=== PATIENT | female | born 1940 | race Caucasian/White ===

== ENCOUNTER → 2016-07-07 | Outpatient (CLI) | payer MEDICARE ==
--- NOTE | 2016-07-08 16:03 | NM ---
EXAMINATION TYPE: NM thyroid image w uptake DATE OF EXAM: 07/08/2016 11:11 AM COMPARISON: Ultrasound 01/02/2016 HISTORY: 75-year-old female with nontoxic multinodular goiter TECHNIQUE: After the intravenous administration of 10.86 mCi Tc 99m Sodium Pertechnetate, thyroid paradise ging is performed 10 minutes post injection. Thyroid iodine uptake is calculated after the oral admin istration of 18 uCi I-131 capsule. FINDINGS: There appears to be a focal area of increased activity within the medial mid left lobe. Otherwise, no rmal, possibly slightly depressed activity throughout the gland. The 4 hour iodine uptake is calculated at 7.9%, low (normal range 8-14%). The 24-hour iodine uptake is calculated at 26.1%, high normal (normal range 15-35%). IMPRESSION: 1. Warm versus hot nodule within the medial left midpole. This may correspond to the 1.1 cm left lobe nodule on the 01/02/2016 ultrasound. Follow-up thyroid uptake utilizing I-123 can be considered to as sess for the possibility of a warm/discordant nodule. A potentially discordant nodule could subsequen tly be biopsied. 2. However, if there are clinical signs/symptoms and laboratory findings suggesting that this could r epresent a toxic nodule, further medical or surgical management could be considered.
== END | disposition home or self-care (01) ==
LOC: RADNMMAIN 10:22
PROVIDERS: ATTEND Internal Medicine Endocrinology, Diabetes & Metabolism
DX: E04.2 Nontoxic multinodular goiter (principal)
CPT/HCPCS: 78014; A9528; A9512

== ENCOUNTER → 2016-07-15 | Outpatient (CLI) | payer MEDICARE ==
[2016-07-15 10:31] LABS: CH 30.3; CHCM 34.4; HCT 39.5 % (34.0-46.0); HDW 3.23; HGB 13.4 gm/dL (11.4-16.0); MCH 29.9 pg (25.0-35.0); MCHC 33.9 g/dL (31.0-37.0); MCV 88.3 fL (80.0-100.0); Mean Platelet Volume 7.5; RBC 4.48 m/uL (3.80-5.40); RDW 12.8 % (11.5-15.5); WBC 5.9 k/uL (3.8-10.6)
[2016-07-15 10:54] LABS: ALT 29 U/L (9-52); AST 22 U/L (14-36); Alkaline Phosphatase 90 U/L (38-126); Anion Gap 10 mmol/L; Blood Urea Nitrogen 13 mg/dL (7-17); Calcium 9.6 mg/dL (8.4-10.2); Carbon Dioxide 30 mmol/L (22-30); Chloride 102 mmol/L (98-107); Glucose 103 mg/dL (74-99); Non-African American GFR(MDRD) >60 (>60 ml/min/1.73 sqM); Potassium 3.7 mmol/L (3.5-5.1); Sodium 142 mmol/L (137-145); Total Bilirubin 0.9 mg/dL (0.2-1.3); Total Protein 7.3 g/dL (6.3-8.2)
== END | disposition home or self-care (01) ==
LOC: LABWHC1 10:01
PROVIDERS: ATTEND Internal Medicine Endocrinology, Diabetes & Metabolism
DX: E04.2 Nontoxic multinodular goiter (principal)
CPT/HCPCS: 36415; 80053; 85027

== ENCOUNTER → 2016-09-07 | Outpatient (CLI) | payer MEDICARE | END | disposition home or self-care (01) | LOC: LABWHC1 10:31 | PROVIDERS: ATTEND Internal Medicine Endocrinology, Diabetes & Metabolism | DX: E04.2 Nontoxic multinodular goiter (principal) | CPT/HCPCS: 36415; 84439; 84443 ==

== ENCOUNTER → 2016-12-14 | Outpatient (CLI) | payer MEDICARE | END | disposition home or self-care (01) | LOC: LABWHC1 10:23 | PROVIDERS: ATTEND Internal Medicine Endocrinology, Diabetes & Metabolism | DX: E05.90 Thyrotoxicosis, unspecified without thyrotoxic crisis or storm (principal) | CPT/HCPCS: 36415; 84439; 84443 ==

== ENCOUNTER → 2017-02-17 | Outpatient (CLI) | payer MEDICARE | LOC: LABWHC1 10:37 | PROVIDERS: ATTEND Internal Medicine Endocrinology, Diabetes & Metabolism | DX: E04.2 Nontoxic multinodular goiter (principal) | CPT/HCPCS: 36415; 84439; 84443 ==

== ENCOUNTER → 2017-09-17 | Outpatient (CLI) | payer MEDICARE ==
[2017-09-17 10:09] LABS: T4, Free (Free Thyroxine) 1.35 ng/dL (0.78-2.19)
== END | disposition home or self-care (01) ==
LOC: LABWHC1 08:59
PROVIDERS: ATTEND Internal Medicine Endocrinology, Diabetes & Metabolism
DX: E05.90 Thyrotoxicosis, unspecified without thyrotoxic crisis or storm (principal)
CPT/HCPCS: 36415; 84439; 84443; 84480

== ENCOUNTER → 2017-09-17 | Outpatient (CLI) | payer MEDICARE ==
--- NOTE | 2017-09-17 10:16 | US ---
EXAMINATION TYPE: US thyroid st tissue head/neck DATE OF EXAM: 09/17/2017 COMPARISON: US 01/02/2016. CLINICAL HISTORY: E04.2 Nontoxic Multinodular Goiter. F/U previous GLAND SIZE: Right Lobe: 4.0 x 2.0 x 1.9 cm Overall Parenchyma: heterogenous Left Lobe: 3.8 x 1.9 x 1.7 cm Overall Parenchyma: heterogeneous Isthmus Thickness: 0.6 cm NODULES RIGHT: # of nodules measured on right: 3 1. 1.1 X 1.0 x 1.0 cm isoechoic solid nodule at the upper pole with poorly defined margins; This n odule is wider than tall and shows intranodular vascularity. Prior size: Not visualized on previous 2. 0.7 X 0.8 x 0.8 cm isoechoic mixed nodule at the mid pole with poorly defined margins; This nodu le is wider than tall and shows intranodular vascularity. Prior size: Not visualized on previous 3. 0.6 X 0.5 x 0.5 cm echogenic calcified nodule at the mid pole. Prior size: 0.6 x 0.4 x 0.4 cm Multiple sub-centimeter cysts scattered throughout LEFT: # of nodules measured on left: 1 1. 0.9 X 0.7 x 1.0 cm hypoechoic solid nodule medial with well-defined margins; This nodule is wid er than tall and shows intranodular vascularity. Prior size: 1.1 x 0.7 x 0.9 cm Multiple sub-centimeter cysts scattered throughout ISTHMUS: # of nodules measured in the isthmus: 1 1. 1.4 X 0.9 x 1.5 cm hypoechoic solid nodule with well-defined margins; This nodule is wider rashawn n tall and shows intranodular vascularity. Prior size: 0.9 x 0.7 x 0.9 cm Bilateral neck scanned, no evidence of lymphadenopathy. Nodules bilaterally IMPRESSION: Multiple nonspecific subcentimeter and pericentimeter nodules need to biopsy should be made on a clin ical basis.
== END | disposition home or self-care (01) ==
LOC: RADUSWWP 09:19
PROVIDERS: ATTEND Internal Medicine Endocrinology, Diabetes & Metabolism
DX: E04.2 Nontoxic multinodular goiter (principal)
CPT/HCPCS: 76536

== ENCOUNTER → 2017-11-17 | Outpatient (CLI) | payer MEDICARE ==
--- NOTE | 2017-11-17 10:16 | XR ---
EXAMINATION TYPE: XR ankle complete LT DATE OF EXAM: 11/17/2017 COMPARISON: NONE HISTORY: Pain TECHNIQUE: 3 views of the left ankle are submitted for evaluation. FINDINGS: There is no evidence for fracture or dislocation. Ankle mortise is intact. Soft tissues are within normal limits. IMPRESSION: 1. No evidence for acute fracture.
--- NOTE | 2017-11-17 10:23 | XR ---
EXAMINATION TYPE: XR Hip Complete LT DATE OF EXAM: 11/17/2017 CLINICAL HISTORY: pain TECHNIQUE: AP and frogleg views of the left hip are obtained. COMPARISON: None. FINDINGS: There is no acute fracture/dislocation evident. The joint space appears moderately narro wed.. The overlying soft tissue appears unremarkable. IMPRESSION: 1. There is no acute fracture or dislocation. ICD 10 NO FRACTURE, INITIAL EVALUATION
--- NOTE | 2017-11-17 10:25 | XR ---
EXAMINATION TYPE: XR knee complete LT DATE OF EXAM: 11/17/2017 CLINICAL HISTORY: pain TECHNIQUE: Three views of the left knee are obtained. COMPARISON: None. FINDINGS: There is no acute fracture/dislocation. The tri-compartment joint spaces appear within no rmal limits. Intercondylar spur formation noted. The overlying soft tissue appears unremarkable. IMPRESSION: There is no acute fracture or dislocation ICD 10 NO FRACTURE, INITIAL EVALUATION
== END | disposition home or self-care (01) ==
LOC: RADXRMAIN 09:29
PROVIDERS: ATTEND Family Medicine
DX: M25.572 Pain in left ankle and joints of left foot (principal); M25.562 Pain in left knee; M25.552 Pain in left hip
CPT/HCPCS: 73502

== ENCOUNTER → 2017-12-13 | Outpatient (CLI) | payer MEDICARE ==
--- NOTE | 2017-12-14 09:42 | MM ---
Reason for exam: screening (asymptomatic). Last mammogram was performed 1 year and 7 months ago. History: Patient is postmenopausal. Family history of breast cancer in sister at age 45. Physical Findings: A clinical breast exam by your physician is recommended on an annual basis and results should be correlated with mammographic findings. MG 3D Screening Mammo W/Cad Bilateral CC and MLO view(s) were taken. Prior study comparison: May 26, 2016, bilateral MG 3d screening mammo w/cad. December 05, 2014, bilateral MG screening mammo w CAD. The breast tissue is heterogeneously dense. This may lower the sensitivity of mammography. Stable benign calcifications. There is no discrete abnormality. No significant changes when compared with prior studies. ASSESSMENT: Benign, BI-RAD 2 RECOMMENDATION: Routine screening mammogram of both breasts in 1 year.
== END | disposition home or self-care (01) ==
LOC: RADMAMWWP 07:10
PROVIDERS: ATTEND Family Medicine
DX: Z12.31 Encounter for screening mammogram for malignant neoplasm of breast (principal)
CPT/HCPCS: 77063; 77067

== ENCOUNTER → 2017-12-24 | Outpatient (CLI) | payer MEDICARE ==
[2017-12-24 11:28] LABS: T4, Free (Free Thyroxine) 1.13 ng/dL (0.78-2.19)
== END | disposition home or self-care (01) ==
LOC: LABWHC1 10:22
PROVIDERS: ATTEND Internal Medicine Endocrinology, Diabetes & Metabolism
DX: E05.90 Thyrotoxicosis, unspecified without thyrotoxic crisis or storm (principal)
CPT/HCPCS: 36415; 84439; 84443; 84480

== ENCOUNTER → 2018-02-09 | Outpatient (CLI) | payer MEDICARE ==
[2018-02-09 11:26] LABS: Bilirubin, Delta 0.3 mg/dL (0.0-0.2); Bilirubin,Unconjugated 0.6 mg/dL (0.0-1.1); Total Bilirubin 0.9 mg/dL (0.2-1.3)
== END | disposition home or self-care (01) ==
LOC: LABWHC1 10:11
PROVIDERS: ATTEND Family Medicine
DX: E78.00 Pure hypercholesterolemia, unspecified (principal); I10 Essential (primary) hypertension; Z79.899 Other long term (current) drug therapy
CPT/HCPCS: 36415; 80061; 80076

== ENCOUNTER → 2018-07-05 | Outpatient (CLI) | payer MEDICARE ==
[2018-07-05 16:52] LABS: T4, Free (Free Thyroxine) 1.3 ng/dL (0.80-1.80)
== END | disposition home or self-care (01) ==
LOC: LABWHC1 11:09
PROVIDERS: ATTEND Internal Medicine Endocrinology, Diabetes & Metabolism
DX: E05.90 Thyrotoxicosis, unspecified without thyrotoxic crisis or storm (principal)
CPT/HCPCS: 36415; 84439; 84443; 84480

== ENCOUNTER 2018-08-23 09:12 | Day surgery (SDC) | payer MEDICARE ==
[2018-08-19 08:55] VITALS: BMI 32.4
[~2018-08-23 09:12] MED LIST: LACTATED RINGERS 1,000 ML IV SCH; LIDOCAINE 1% 20 ML VIAL (10MG/ML) FOR IV START INTRADERMA PRN
[2018-08-23 09:31] VITALS: RESP 16; TEMP 97.3
[2018-08-23] MEDS ORDERED: PROPOFOL 10 MG/ML 20 ML VIAL IV ONE (10:46)
--- NOTE | 2018-08-23 10:52 | P.GSHP ---
History of Present Illness H&P Date: 08/23/18 Chief Complaint: Blood in stool This is a 77-year-old female who presents today for colonoscopy. Patient states that she notices blood in the pump of her when she wiped herself. She has a history of hemorrhoids. Past Medical History Past Medical History: Deep Vein Thrombosis (DVT), GERD/Reflux, GI Bleed, Hyperlipidemia, Hypertension, Thyroid Disorder Additional Past Medical History / Comment(s): hx hemorrhoids, arthritis, recent gum infection History of Any Multi-Drug Resistant Organisms: None Reported Past Surgical History: Cholecystectomy, Heart Catheterization, Hysterectomy Additional Past Surgical History / Comment(s): surgery for varicose veins left leg Past Anesthesia/Blood Transfusion Reactions: Previous Problems w/ Anesthesia Additional Past Anesthesia/Blood Transfusion Reaction / Comment(s): "hard time coming back with last anesthesia" Smoking Status: Never smoker - Past Family History Father Family Medical History: Cancer Sister(s) Family Medical History: Cancer Sister(s) Daughter(s) Additional Family Medical History / Comment(s): sister-cancer Medications and Allergies Home Medications Medication Instructions Recorded Confirmed Type Acetaminophen [Tylenol] 325 mg PO Q4H PRN 08/19/18 08/23/18 History Aspirin EC [Ecotrin] 325 mg PO DAILY 08/19/18 08/23/18 History Atenolol [Tenormin] 12.5 mg PO DAILY 08/19/18 08/23/18 History Atenolol [Tenormin] 25 mg PO DAILY 08/19/18 08/23/18 History Atorvastatin [Lipitor] 40 mg PO DAILY 08/19/18 08/23/18 History Benazepril HCl 20 mg PO DAILY 08/19/18 08/23/18 History Calcium Carbonate [Tums] 500 mg PO DAILY PRN 08/19/18 08/23/18 History Calcium Carbonate/Vitamin D3 1 each PO DAILY 08/19/18 08/23/18 History [Caltrate 600 Plus D3 Tablet] Cholecalciferol [Vitamin D3] 1,000 unit PO DAILY 08/19/18 08/23/18 History Hydrochlorothiazide [Hydrodiuril] 25 mg PO DAILY 08/19/18 08/23/18 History Methimazole [Tapazole] 5 mg PO DAILY 08/19/18 08/23/18 History amLODIPine BESYLATE [Norvasc] 10 mg PO DAILY 08/19/18 08/23/18 History Allergies Allergy/AdvReac Type Severity Reaction Status Date / Time adhesive tape Allergy Rash/Hives Verified 08/19/18 08:39 niacin Allergy Unknown Verified 08/19/18 08:39 [From Niaspan Extended-Release] Surgical - Exam Vital Signs Temp Pulse Resp BP Pulse Ox 97.3 F L 60 16 147/77 97 08/23/18 09:29 08/23/18 09:29 08/23/18 09:29 08/23/18 09:29 08/23/18 09:29 - General well developed, well nourished, no distress - Eyes PERRL - ENT normal pinna - Neck no masses - Respiratory normal expansion - Cardiovascular Rhythm: regular - Abdomen Abdomen: soft, non tender Assessment and Plan Assessment: Blood in stool History of hemorrhoids We'll perform colonoscopy
[2018-08-23 11:22] VITALS: PULSE 58
--- NOTE | 2018-08-23 11:24 | P.OP ---
Date of Procedure: 08/23/18 Preoperative Diagnosis: Blood in stool Postoperative Diagnosis: Internal hemorrhoids Procedure(s) Performed: Colonoscopy Anesthesia: MAC Surgeon: Garrett Moreira Pathology: none sent Condition: stable Disposition: PACU Description of Procedure: The patient's placed on the endoscopy table in the lateral position. She received IV sedation. Digital rectal exam was performed which revealed internal hemorrhoids. Flexible colonoscope was then placed patient anus and passed throughout the entire colon. The ileocecal valve was visualized. The cecum, ascending and transverse colon appeared normal. In the descending colon there a few scattered diverticula. Scope was then brought back scope was then brought back the rectum this appeared normal. The scope was withdrawn from patient and internal hemorrhoids are noted.
[2018-08-23 11:35] VITALS: BP 114/68
== END 2018-08-23 12:05 | disposition home or self-care (01) ==
LOC: ORWHC2ENDO 09:12
PROVIDERS: ATTEND Surgery
DX: K64.8 Other hemorrhoids (principal); K57.30 Diverticulosis of large intestine without perforation or abscess without bleeding; E78.5 Hyperlipidemia, unspecified; I10 Essential (primary) hypertension; K21.9 Gastro-esophageal reflux disease without esophagitis; Z79.82 Long term (current) use of aspirin; Z86.718 Personal history of other venous thrombosis and embolism; Z90.49 Acquired absence of other specified parts of digestive tract; Z88.8 Allergy status to other drugs, medicaments and biological substances; Z79.899 Other long term (current) drug therapy
CPT/HCPCS: 45378; J2704

== ENCOUNTER → 2018-09-26 | Outpatient (CLI) | payer MEDICARE ==
[2018-09-26 20:06] LABS: T4, Free (Free Thyroxine) 1.1 ng/dL (0.80-1.80)
== END | disposition home or self-care (01) ==
LOC: LABWHC1 11:29
PROVIDERS: ATTEND Internal Medicine Endocrinology, Diabetes & Metabolism
DX: E05.90 Thyrotoxicosis, unspecified without thyrotoxic crisis or storm (principal)
CPT/HCPCS: 36415; 84439; 84443; 84480

== ENCOUNTER → 2019-01-03 | Outpatient (CLI) | payer MEDICARE ==
[2019-01-03 10:10] LABS: T4, Free (Free Thyroxine) 1.17 ng/dL (0.78-2.19)
--- NOTE | 2019-01-03 11:46 | US ---
EXAMINATION TYPE: US thyroid st tissue head/neck DATE OF EXAM: 01/03/2019 COMPARISON: NONE CLINICAL HISTORY: E04.2 goiter. Follow up thyroid nodules GLAND SIZE: Right Lobe: 4.7 x 2.4 x 2.2 cm Overall Parenchyma: heterogenous Left Lobe: 4.4 x 1.8 x 2.1 cm Overall Parenchyma: heterogeneous Isthmus Thickness: 0.9 cm NODULES RIGHT: # of nodules measured on right: 3 1. 1.0 X 1.1 x 1.1 cm isoechoic solid nodule at the upper pole with poorly defined margins; . This nodule is wider than tall and shows intranodular vascularity. Prior size: 1.1 x 1.0 x 1.0 cm 2. 0.9 X 0.7 x 0.8 cm isoechoic mixed nodule at the mid pole with poorly defined margins; . This no dule is wider than tall and shows intranodular vascularity. Prior size: 0.7 x 0.8 x 0.8 cm 3. 0.7 X 0.8 x 0.6 cm calcified nodule at the mid pole Prior size: 0.6 x 0.5 x 0.5 cm LEFT: # of nodules measured on left: 1 1. 1.2 X 0.7 x 1.1 cm hypoechoic solid nodule medial with well-defined margins; . This nodule is w ider than tall and shows intranodular vascularity. Prior size: 0.9 x 0.7 x 1.0 cm ISTHMUS: # of nodules measured in the isthmus: 1 1. 1.4 X 1.0 x 1.6 cm hypoechoic solid nodule with well-defined margins; . This nodule is wider th an tall and shows intranodular vascularity. Prior size: 1.4 x 0.9 x 1.5 cm Bilateral neck scanned, no evidence of lymphadenopathy. Gland is heterogeneous. IMPRESSION: Accounting for differences in technique there is not significant change.
== END | disposition home or self-care (01) ==
LOC: RADUSWWP 08:14
PROVIDERS: ATTEND Internal Medicine Endocrinology, Diabetes & Metabolism
DX: E04.2 Nontoxic multinodular goiter (principal); E05.90 Thyrotoxicosis, unspecified without thyrotoxic crisis or storm
CPT/HCPCS: 36415; 76536; 84439; 84443; 84480

== ENCOUNTER → 2019-02-23 | Outpatient (CLI) | payer MEDICARE ==
--- NOTE | 2019-02-23 10:06 | BD ---
EXAMINATION TYPE: Axial Bone Density DATE OF EXAM: 02/23/2019 COMPARISON: 08.30.2006 CLINICAL HISTORY: 78 YR OLD FEMALE....ICD-10 CODE: Z79.[address] [employer], Z78.0 POST [place] Height: 62 Weight: 188 FRAX RISK QUESTIONS: Secondary Osteoporosis: YES 3. Menopause before 45: YES RISK FACTORS HISTORY OF: Family History of Osteoporosis: UNKNOWN Postmenopausal woman: HYST AT AGE 40 YRS OLD Take estrogen and/or progesterone medications: YES IN THE PAST FOR ABOUT 5 YRS Lost more than 2 inches in height since high school: YES Frequent falls: UNSTEADY, FEET PROBLEMS Poor Health: FRAIL MEDICATIONS: Thyroid Medications: YES, SYNTHROID, FOR YRS Additional Medications: BP MEDS, STATIN FOR CHOLESTEROL, TUMS, CALCIUM AND VIT D, Additional History: HYPERTENSION, CHOLESTEROL, REFLUX EXAM MEASUREMENTS: Bone mineral densitometry was performed using the [employer] System. Bone mineral density as measured about the Lumbar spine is: ----- L1-L4(G/cm2): 1.225 T Score Values are as follows: ----- L1: -1.2 ----- L2: -0.6 ----- L3: 0.3 ----- L4: 2.4 ----- L1-L4: 0.4 Bone mineral density has: Increased 10.4% SINCE 08.30.2006 STUDY Bone mineral density about the R hip (g/cm2): 0.942 Bone mineral density about the L hip (g/cm2): 0.961 T Score values are as follows: -----R Neck: -1.1 -----L Neck: -1.4 -----R Total: -0.5 -----L Total: -0.4 Bone mineral density has: Increased 6.3% SINCE 08.30.2006 STUDY FRAX%s: THERE IS A 10.7% CHANCE FOR A MAJOR OSTEOPOROTIC FX AND A 2.1% FOR HIP.....PROBABILITY FOR FX IN 10 YRS TIME IMPRESSION: Osteopenia (T Score between -2.5 and -1). There is slightly increased risk of fracture and the patient may be considered for treatment. Re-Screen 2-5 years. NOTE: T-SCORE=SD OF THE YOUNG ADULT MEAN.
--- NOTE | 2019-02-24 09:45 | MM ---
Reason for exam: screening (asymptomatic). Last mammogram was performed 1 year and 2 months ago. History: Patient is postmenopausal. Family history of breast cancer in sister at age 45. Took hormonal contraceptives for 4 years. Physical Findings: A clinical breast exam by your physician is recommended on an annual basis and results should be correlated with mammographic findings. MG 3D Screening Mammo W/Cad Bilateral CC and MLO view(s) were taken. Prior study comparison: December 13, 2017, bilateral MG 3d screening mammo w/cad. May 26, 2016, bilateral MG 3d screening mammo w/cad. The breast tissue is heterogeneously dense. This may lower the sensitivity of mammography. Benign appearing bilateral calcifications. No suspicious abnormality. ASSESSMENT: Benign, BI-RAD 2 RECOMMENDATION: Routine screening mammogram of both breasts in 1 year.
== END | disposition home or self-care (01) ==
LOC: RADMAMWWP 08:11
PROVIDERS: ATTEND Family Medicine
DX: Z12.31 Encounter for screening mammogram for malignant neoplasm of breast (principal); M85.80 Other specified disorders of bone density and structure, unspecified site; Z79.899 Other long term (current) drug therapy
CPT/HCPCS: 77063; 77067; 77080

== ENCOUNTER → 2019-05-03 | Outpatient (CLI) | payer MEDICARE ==
[2019-05-03 18:46] LABS: T4, Free (Free Thyroxine) 1.2 ng/dL (0.80-1.80)
== END | disposition home or self-care (01) ==
LOC: LABWHC1 13:11
PROVIDERS: ATTEND Internal Medicine Endocrinology, Diabetes & Metabolism
DX: E05.90 Thyrotoxicosis, unspecified without thyrotoxic crisis or storm (principal)
CPT/HCPCS: 36415; 84439; 84443; 84480

== ENCOUNTER → 2019-05-23 | Outpatient (CLI) | payer MEDICARE ==
--- NOTE | 2019-05-23 08:35 | XR ---
EXAMINATION TYPE: XR chest 2V DATE OF EXAM: 05/23/2019 COMPARISON: None HISTORY: 78-year-old female cough and congestion, J20.9 TECHNIQUE: Frontal and lateral views FINDINGS: Heart borderline to mildly enlarged. Mild hyperinflation with interstitial prominence. Mild patchy lo wer lung densities. No pleural effusion. IMPRESSION: 1. Borderline to mild cardiomegaly. 2. Suspect underlying COPD. Clinically correlate. 3. Mild patchy bibasilar atelectasis versus early infiltrates. The former is favored.
== END | disposition home or self-care (01) ==
LOC: RADXRWHC 08:08
PROVIDERS: ATTEND Family Medicine
DX: J20.9 Acute bronchitis, unspecified (principal)
CPT/HCPCS: 71046

== ENCOUNTER → 2019-08-02 | Outpatient (CLI) | payer MEDICARE ==
--- NOTE | 2019-08-02 14:39 | XR ---
Left knee HISTORY: Pain, trauma 6 days prior 4 views of the left knee correlated to prior exam 11/17/2017 Bone mineralization, joint spaces and alignment are maintained. There is a small joint effusion. Ther e is soft tissue swelling. IMPRESSION: No fracture or dislocation.
== END | disposition home or self-care (01) ==
LOC: RADXRMAIN 10:01
PROVIDERS: ATTEND Family Medicine
DX: M25.562 Pain in left knee (principal); S89.92XA Unspecified injury of left lower leg, initial encounter

== ENCOUNTER → 2019-08-29 | Outpatient (CLI) | payer MEDICARE ==
[2019-08-29 10:59] LABS: T4, Free (Free Thyroxine) 1.3 ng/dL (0.80-1.80)
== END | disposition home or self-care (01) ==
LOC: LABWHC1 06:44
PROVIDERS: ATTEND Internal Medicine Endocrinology, Diabetes & Metabolism
DX: E05.90 Thyrotoxicosis, unspecified without thyrotoxic crisis or storm (principal)
CPT/HCPCS: 36415; 84439; 84443; 84480

== ENCOUNTER → 2019-12-06 | Outpatient (CLI) | payer MEDICARE ==
--- NOTE | 2019-12-06 13:37 | US ---
EXAMINATION TYPE: US thyroid st tissue head/neck DATE OF EXAM: 12/06/2019 COMPARISON: Thyroid JANUARY 03, 2019 CLINICAL HISTORY: E04.2 MULTINODULAR GOITER. GLAND SIZE: Right Lobe: 4.7 x 2.3 x 1.6 cm Overall Parenchyma: heterogenous Left Lobe: 4.3 x 1.9 x 1.6 cm Overall Parenchyma: heterogeneous Isthmus Thickness: 0.7 cm NODULES RIGHT: # of nodules measured on right: 3 1. 1.0 X 0.9 x 1.1 cm isoechoic solid nodule at the upper pole with poorly defined margins. This nod ule is wider than tall and shows intranodular vascularity. Prior size: 1.1 x 1.0 x 1.0 cm 2. 0.8 X 0.8 x 0.9 cm isoechoic mixed nodule at the mid pole with poorly defined margins. This nodul e is wider than tall and shows intranodular vascularity. Prior size: 0.9 x 0.7 x 0.8 cm 3. 0.6 X 0.6 x 0.7 cm calcified nodule at the mid pole Prior size: 0.7 x 0.8 x 0.8 cm LEFT: # of nodules measured on left: 1 1. 1.2 X 0.7 x 1.1 cm hypoechoic solid nodule medial with well-defined margins; . This nodule is wide r than tall and shows intranodular vascularity. Prior size: 0.9 x 0.7 x 1.0 cm ISTHMUS: # of nodules measured in the isthmus: 1 1. 1.7 X 0.9 x 2.1 cm hypoechoic solid nodule with well-defined margins; . This nodule is wider than tall and shows intranodular vascularity. Prior size: 1.4 x 1.0 x 1.6 cm Bilateral neck scanned, no evidence of lymphadenopathy. Gland is heterogeneous. Heterogeneous multinodular goiter redemonstrated without significant interval change accounting for t echnical differences. IMPRESSION: As above.
[2019-12-06 14:13] LABS: T4, Free (Free Thyroxine) 1.25 ng/dL (0.78-2.19)
== END | disposition home or self-care (01) ==
LOC: RADUSWWP 12:14
PROVIDERS: ATTEND Internal Medicine Endocrinology, Diabetes & Metabolism
DX: E04.2 Nontoxic multinodular goiter (principal); E05.90 Thyrotoxicosis, unspecified without thyrotoxic crisis or storm
CPT/HCPCS: 36415; 76536; 84439; 84443; 84480

== ENCOUNTER → 2020-04-09 | Outpatient (CLI) | payer MEDICARE ==
[2020-04-09 20:49] LABS: T4, Free (Free Thyroxine) 1.2 ng/dL (0.80-1.80)
== END | disposition home or self-care (01) ==
LOC: LABWHC1 11:22
PROVIDERS: ATTEND Internal Medicine Sleep Medicine
DX: E05.90 Thyrotoxicosis, unspecified without thyrotoxic crisis or storm (principal); E04.2 Nontoxic multinodular goiter
CPT/HCPCS: 36415; 84439; 84443; 84480

== ENCOUNTER → 2020-07-04 | Outpatient (CLI) | payer MEDICARE ==
--- NOTE | 2020-07-04 14:29 | CT ---
EXAMINATION TYPE: CT abdomen pelvis w con DATE OF EXAM: 07/04/2020 COMPARISON: NONE HISTORY: 79-year-old female LLQ pain TECHNIQUE: Contiguous axial scanning of the abdomen and pelvis following administration of 100 ml Iso linda 300 IV contrast. Delayed images through the kidneys and coronal/sagittal reconstructions perform ed. CT DLP: 1419 mGycm Automated exposure control for dose reduction was used. FINDINGS: Heart borderline in size without pericardial effusion. Some emphysematous change in the lower lungs. Groundglass probably areas of generalized atelectasis or interstitial scarring. Small hiatal hernia. A 2.9 cm hypodense lesion within the left hepatic dome shows some peripheral nodular calcifications b ut intermediate density. No clear change in attenuation on the delayed kidney images. Findings may re present a complicated cyst. Numerous smaller less than 1 cm hypodensities are present in both liver lobes to small for accurate C T characterization, probable cysts. There is enlargement of the bile duct up to 1.0 cm and mild central hepatic biliary ductal dilatation as well. Cholecystectomy clips. Right adrenal gland, right kidney with extrarenal pelvis, spleen with small inferior hilar splenule a ppear within normal limits. 1.5 cm fat density cortical lesion upper pole left kidney suggesting a benign AML. Extra renal pelvis on the left. Mild fatty atrophy of the pancreas. 1.4 cm nodule of the left adrenal gland is indeterminate. No dilated small bowel, free fluid, or free air. No mesenteric or retroperitoneal lymphadenopathy. Mild stool in the right-sided the abdomen. Sigmoid diverticulosis without pericolonic inflammatory ch trish. Mildly redundant distal sigmoid colon. Bladder is urine distended. Bulging laxity of the levator ani musculature suggesting pelvic floor rel axation. Uterus surgically absent. Multiple pelvic phleboliths. Neither ovary is visualized. Bones: Osteitis pubis. Degenerative change left rib and right hips and left SI joint as well as a lef t L5 sacralization. Advanced hypertrophic facet arthropathy above causing a grade 1 anterolisthesis a t both L3-L4 and L4-L5. Baastrup's disease. IMPRESSION: 1. DILATATION OF THE BILE DUCT UP TO 1 CM MAY BE CHRONIC IN THIS PATIENT AFTER CHOLECYSTECTOMY. CORRE LATE WITH ALKALINE PHOSPHATASE AND BILIRUBIN LEVELS. IF VALUES ARE ELEVATED/CONCERN FOR EARLY BILIARY OBSTRUCTION, CONSIDER ERCP/MRCP EVALUATION. 2. INDETERMINATE 2.9 CM HYPODENSE LESION LEFT HEPATIC DOME. THIS COULD REPRESENT A COMPLICATED CYST. CONFIRMATION OF A BENIGN CYSTIC ETIOLOGY IS RECOMMENDED WITH LIVER ULTRASOUND. IF IT REMAINS INDETERM INATE ON THAT EXAM, A SIX-MONTH FOLLOW-UP CT CAN BE PERFORMED. 3. INDETERMINATE 1.4 CM NODULE LEFT ADRENAL GLAND. 6 MONTH FOLLOW-UP CT WITH ADRENAL MASS PROTOCOL TO REASSESS. 4. 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 5. SIGMOID DIVERTICULOSIS. NO EVIDENCE FOR ACUTE DIVERTICULITIS AT THIS TIME.
== END | disposition home or self-care (01) ==
LOC: RADCTMAIN 11:44
PROVIDERS: ATTEND Family Medicine
DX: D17.71 Benign lipomatous neoplasm of kidney (principal); K57.30 Diverticulosis of large intestine without perforation or abscess without bleeding; K83.8 Other specified diseases of biliary tract; Z88.8 Allergy status to other drugs, medicaments and biological substances; Z90.49 Acquired absence of other specified parts of digestive tract; Z91.048 Other nonmedicinal substance allergy status
CPT/HCPCS: 74177; Q9967 ×2

== ENCOUNTER → 2020-07-24 | Outpatient (CLI) | payer MEDICARE ==
--- NOTE | 2020-07-24 14:04 | US ---
EXAMINATION TYPE: US liver DATE OF EXAM: 07/24/2020 COMPARISON: NONE CLINICAL HISTORY: R10.9 abdominal pain. abdominal pain, liver cysts visualized on CT EXAM MEASUREMENTS: Liver Length: 17.1 cm Gallbladder Wall: Surgically absent CBD: 1.1 cm Right Kidney: 9.5 x 4.2 x 4.9 cm Technical limitations due to large amount of overlying bowel content Pancreas: Obscured by bowel gas Liver: unable to visualize liver cysts at this time, limited evaluation of left lobe due to overlyin g bowel Gallbladder: Surgically absent Evidence for sonographic Cisse's sign: no CBD: slightly dilated . Normal 1.0 cm or less Right Kidney: no evidence of hydronephrosis IMPRESSION: 1. Examination limited due to bowel gas. 2. No suspicious ultrasound abnormality visualized ultrasound abdomen
== END | disposition home or self-care (01) ==
LOC: RADUSWWP 07:23
PROVIDERS: ATTEND Family Medicine
DX: K76.89 Other specified diseases of liver (principal); R10.32 Left lower quadrant pain
CPT/HCPCS: 76705

== ENCOUNTER 2020-08-08 09:50 | Day surgery (SDC) | payer MEDICARE ==
[2020-08-07 13:29] VITALS: BMI 32.4
[~2020-08-08 09:50] MED LIST changes: -LIDOCAINE 1% 20 ML VIAL (10MG/ML) FOR IV START INTRADERMA PRN
[2020-08-08 10:19] VITALS: TEMP 98.7
[2020-08-08] MEDS ORDERED: LIDOCAINE 1% (10MG/ML) FOR IV START INTRADERMA ONE (10:21)
[2020-08-08] MEDS ORDERED: PROPOFOL 10 MG/ML 20 ML VIAL IV ONE (11:15)
--- NOTE | 2020-08-08 11:26 | P.GSHP ---
History of Present Illness H&P Date: 08/08/20 Chief Complaint: Constipation, hemorrhoids This a 79-year-old female presents today for colonoscopy. She's had issues with constipation. She also complains of anal pain due to hemorrhoids. Past Medical History Past Medical History: Deep Vein Thrombosis (DVT), GERD/Reflux, GI Bleed, Hyperlipidemia, Hypertension, Osteoarthritis (OA), Thyroid Disorder Additional Past Medical History / Comment(s): hx hemorrhoids, arthritis, recent gum infection History of Any Multi-Drug Resistant Organisms: None Reported Past Surgical History: Cholecystectomy, Heart Catheterization, Hysterectomy Additional Past Surgical History / Comment(s): surgery for varicose veins left leg Past Anesthesia/Blood Transfusion Reactions: Previous Problems w/ Anesthesia Additional Past Anesthesia/Blood Transfusion Reaction / Comment(s): STATES IT TOOK A LONGER TO WAKE UP" PER PATIENT Past Psychological History: No Psychological Hx Reported Smoking Status: Never smoker Past Alcohol Use History: None Reported Past Drug Use History: None Reported - Past Family History Father Family Medical History: Cancer Sister(s) Family Medical History: Cancer Sister(s) Daughter(s) Additional Family Medical History / Comment(s): sister-cancer Medications and Allergies Home Medications Medication Instructions Recorded Confirmed Type Acetaminophen [Tylenol] 325 mg PO Q4H PRN 08/19/18 08/07/20 History Aspirin EC [Ecotrin] 325 mg PO DAILY 08/19/18 08/07/20 History Atorvastatin [Lipitor] 40 mg PO HS 08/19/18 08/07/20 History Benazepril HCl 20 mg PO DAILY 08/19/18 08/07/20 History Calcium Carbonate [Tums] 500 mg PO DAILY PRN 08/19/18 08/07/20 History Calcium Carbonate/Vitamin D3 1 each PO DAILY 08/19/18 08/07/20 History [Caltrate 600 Plus D3 Tablet] amLODIPine BESYLATE [Norvasc] 10 mg PO 1600 08/19/18 08/07/20 History hydroCHLOROthiazide [Hydrodiuril] 25 mg PO DAILY 08/19/18 08/07/20 History methIMAzole [Tapazole] 2.5 mg PO 1600 08/19/18 08/07/20 History Cholecalciferol [Vitamin D3 (25 50 mcg PO DAILY 08/07/20 08/07/20 History Mcg = 1000 Iu)] Metoprolol Succinate (ER) [Toprol 25 mg PO HS 08/07/20 08/07/20 History Xl] Allergies Allergy/AdvReac Type Severity Reaction Status Date / Time adhesive tape Allergy Rash/Hives Verified 08/19/18 08:39 niacin Allergy Unknown Verified 08/19/18 08:39 [From Niaspan Extended-Release] Surgical - Exam Vital Signs Temp Pulse Resp BP Pulse Ox 98.7 F 100 20 164/72 97 08/08/20 10:18 08/08/20 10:18 08/08/20 10:18 08/08/20 10:18 08/08/20 10:18 - General well developed, well nourished, no distress - Eyes PERRL - ENT normal pinna - Neck no masses - Respiratory normal expansion - Cardiovascular Rhythm: regular - Abdomen Abdomen: soft, non tender Assessment and Plan Assessment: Constipation, hemorrhoids. We'll perform colonoscopy.
--- NOTE | 2020-08-08 11:28 | P.OP ---
Date of Procedure: 08/08/20 Preoperative Diagnosis: Constipation, hemorrhoids Postoperative Diagnosis: Internal and external hemorrhoids Diverticulosis Procedure(s) Performed: Colonoscopy Anesthesia: MAC Surgeon: Garrett Moreira Pathology: none sent Condition: stable Disposition: PACU Description of Procedure: The patient's placed on the endoscopy table in the lateral position. She received IV sedation. Digital rectal exam was performed which revealed internal/external hemorrhoids. The flexible colonoscope was then placed patient anus and passed throughout the entire colon. The ileocecal valve was visualized. The cecum, ascending and transverse colon appeared normal. In the descending and; there is moderate diverticular changes. There is no evidence of diverticulitis. Scope was brought back the rectum this appeared normal. Scope was withdrawn for patient.
[2020-08-08 12:01] VITALS: BP 113/75; PULSE 86; RESP 16
== END 2020-08-08 12:27 | disposition home or self-care (01) ==
LOC: ORWHC2ENDO 09:50
PROVIDERS: ATTEND Surgery
DX: K64.8 Other hemorrhoids (principal); K64.4 Residual hemorrhoidal skin tags; K57.31 Diverticulosis of large intestine without perforation or abscess with bleeding; K59.00 Constipation, unspecified; K21.9 Gastro-esophageal reflux disease without esophagitis; E78.5 Hyperlipidemia, unspecified; I10 Essential (primary) hypertension; M19.90 Unspecified osteoarthritis, unspecified site; E07.9 Disorder of thyroid, unspecified; K08.89 Other specified disorders of teeth and supporting structures; K08.409 Partial loss of teeth, unspecified cause, unspecified class; Z86.718 Personal history of other venous thrombosis and embolism; Z87.19 Personal history of other diseases of the digestive system; Z86.19 Personal history of other infectious and parasitic diseases; Z90.49 Acquired absence of other specified parts of digestive tract; Z98.890 Other specified postprocedural states; Z90.710 Acquired absence of both cervix and uterus; Z91.89 Other specified personal risk factors, not elsewhere classified; Z80.9 Family history of malignant neoplasm, unspecified; Z79.899 Other long term (current) drug therapy; Z79.82 Long term (current) use of aspirin; Z91.09 Other allergy status, other than to drugs and biological substances; Z88.8 Allergy status to other drugs, medicaments and biological substances
CPT/HCPCS: 45378; J2704

== ENCOUNTER → 2020-08-16 | Outpatient (CLI) | payer MEDICARE ==
[2020-08-16 20:51] LABS: T4, Free (Free Thyroxine) 1.4 ng/dL (0.80-1.80)
== END | disposition home or self-care (01) ==
LOC: LABWHC1 10:28
PROVIDERS: ATTEND Internal Medicine Endocrinology, Diabetes & Metabolism
DX: E04.2 Nontoxic multinodular goiter (principal)
CPT/HCPCS: 36415; 84439; 84443

== ENCOUNTER → 2020-12-20 | Outpatient (CLI) | payer MEDICARE ==
[2020-12-20 19:29] LABS: T4, Free (Free Thyroxine) 1.2 ng/dL (0.80-1.80)
== END | disposition home or self-care (01) ==
LOC: LABWHC1 11:40
PROVIDERS: ATTEND Internal Medicine Endocrinology, Diabetes & Metabolism
DX: E05.90 Thyrotoxicosis, unspecified without thyrotoxic crisis or storm (principal)
CPT/HCPCS: 36415; 84439; 84443; 84480

== ENCOUNTER → 2020-12-20 | Outpatient (CLI) | payer MEDICARE ==
--- NOTE | 2020-12-20 12:31 | XR ---
EXAMINATION TYPE: XR cervical spine comp DATE OF EXAM: 12/20/2020 CLINICAL HISTORY: pain COMPARISON: NONE TECHNIQUE: Frontal, lateral, oblique, swimmers, and open mouth view of the cervical spine are obtaine d. FINDINGS: The cervical spine is visualized in its entirety from C1 thru the top of T1 level. It is s atisfactory in alignment without evidence of acute fracture or dislocation. The pre-vertebral soft t issue appears within normal limits. Moderate to severe multilevel degenerative disc space narrowing a nd spondylosis. The C1-C2 articulation is unremarkable on the open mouth view. The oblique images ar e within normal limits. IMPRESSION: No acute fracture or dislocation is seen in the cervical spine.ICD 10 NO FRACTURE, INITI AL EVALUATION
== END | disposition home or self-care (01) ==
LOC: LABWHC1 11:44
PROVIDERS: ATTEND Family Medicine
DX: M54.2 Cervicalgia (principal)
CPT/HCPCS: 72050

== ENCOUNTER → 2021-01-24 | Outpatient (CLI) | payer MEDICARE ==
[2021-01-24 12:26] LABS: Basophils % (A) 1 %; Eosinophils % (A) 1 %; HCT 40.6 % (34.0-46.0); Lymphocytes # (A) 2.1 k/uL (1.0-4.8); Lymphocytes % (A) 38 %; MCH 30.9 pg (25.0-35.0); MCHC 34.4 g/dL (31.0-37.0); MCV 89.8 fL (80.0-100.0); Mean Platelet Volume 7.9; Monocytes # (A) 0.4 k/uL (0-1.0); Monocytes % (A) 7 %; Neutrophils # (A) 2.8 k/uL (1.3-7.7); Neutrophils % (A) 51 %; Platelet Count 204 k/uL (150-450); RBC 4.52 m/uL (3.80-5.40); RDW 12.8 % (11.5-15.5); WBC 5.5 k/uL (3.8-10.6)
[2021-01-24 12:37] LABS: Potassium 3.5 mmol/L (3.5-5.1)
[2021-01-24 12:45] LABS: INR 1.2 (<1.2)
== END | disposition home or self-care (01) ==
LOC: LABPAT 11:31
PROVIDERS: ATTEND Orthopaedic Surgery
DX: Z01.812 Encounter for preprocedural laboratory examination (principal); M16.12 Unilateral primary osteoarthritis, left hip; Z22.322 Carrier or suspected carrier of Methicillin resistant Staphylococcus aureus
CPT/HCPCS: 36415; 80051; 85025; 85610; 87070

== ENCOUNTER 2021-02-04 06:37 | Day surgery (SDC) | payer MEDICARE ==
[2021-01-31 08:35] VITALS: BMI 32.4
--- NOTE | 2021-02-03 11:01 | HP ---
HISTORY AND PHYSICAL CHIEF COMPLAINT: Left hip pain. HISTORY OF PRESENT ILLNESS: The patient is a 80-year-old retired female who presents with progressive left hip pain, worsening over the past several years. She notes groin and thigh pain, worse with weight-bearing activities. It does limit her ability to walk and in addition wakes her up at night. She notes the hip also gives out. She has been using a cane. She has tried medications in the past. PAST MEDICAL HISTORY: Significant for hypertension and heart disease. PAST SURGICAL HISTORY: Significant for hysterectomy and cholecystectomy. CURRENT MEDICATIONS: Amlodipine, atenolol, atorvastatin, Ecotrin, hydrochlorothiazide, Eliquis. ALLERGIES: She notes allergies to NIASPAN AND TAPE. FAMILY HISTORY: Significant for cancer. SOCIAL HISTORY: Negative for current tobacco or alcohol use. REVIEW OF SYSTEMS: Sixteen-point review of systems is otherwise reviewed and is noncontributory. PHYSICAL EXAMINATION: On examination, the patient is approximately 5 feet 3 inches, 180 pounds of endomorphic habitus. HEENT exam is nonfocal. Neck is supple. Passive motion of the left hip: Flexion 80 degrees, external rotation of the hip flexed 50 degrees, internal rotation zero degrees with pain. She does have shortening of the left lower extremity compared to the right. Her distal neurovascular exam appears intact in the left lower extremity. X-rays of the left hip obtained in the office, including AP and lateral views, show severe osteoarthrosis with [id number] changes and subchondral sclerosis. IMPRESSION: 1. Left hip severe osteoarthrosis, symptomatic. 2. History of heart disease/atrial fibrillation, on anticoagulation. RECOMMENDATIONS: I talked to the patient at length regarding her condition and treatment options. At this point, she is quite symptomatic and limited because of pain related to her osteoarthrosis despite previous conservative measures. After thorough discussion, she opts to proceed with surgery. We will plan to proceed with left total hip arthroplasty using a direct lateral approach. We will reinstitute her Eliquis postoperatively. She did undergo preoperative cardiac clearance. MMODL / IJN: [id number] /
[~2021-02-04 06:37] MED LIST changes: +ACETAMINOPHEN TAB 500 MG TAB PO PRN; +DEXAMETHASONE SOD PHOSPHATE 4 MG/ML 1 ML VIAL IV ONE; -LACTATED RINGERS 1,000 ML IV SCH; +MELOXICAM 7.5 MG TAB PO PRN; +MIDAZOLAM 2 MG/2 ML VIAL IV PRN; +ONDANSETRON 4 MG/2 ML VIAL IVP ONE; +TRANEXAMIC ACID 1,000 MG in SODIUM CHLORIDE 0.9% 100 ML IVPB PRN
[2021-02-04] MEDS: LACTATED RINGERS 1,000 ML IV SCH ×2 (07:34→13:34)
[2021-02-04] MEDS ORDERED: SODIUM CHLORIDE 0.9% 100 ML BAG ONE (07:35)
[2021-02-04] MEDS ORDERED: ePHEDrine SULFATE/0.9% NACL/PF 50 MG/5 ML SYRINGE IV ONE (07:35)
[2021-02-04] MEDS ORDERED: fentaNYL (PF) 50 MCG/ML 2 ML AMP ONE (07:35)
[2021-02-04] MEDS ORDERED: PHENYLEPHRINE-0.9% NACL SYG 1,000 MCG/10 ML SYRINGE ONE (07:35)
[2021-02-04] MEDS ORDERED: TRANEXAMIC ACID 1,000 MG/10 ML VIAL ONE (07:35)
[2021-02-04] MEDS ORDERED: PROPOFOL 10 MG/ML 20 ML VIAL IV ONE (07:35)
[2021-02-04] MEDS ORDERED: LACTATED RINGERS 1,000 ML IV ONE ×2 (07:39→09:16)
[2021-02-04] MEDS ORDERED: ceFAZolin 1,000 MG in SODIUM CHLORIDE 0.9% 1,000 ML IRRIGATION ONE (08:13)
[2021-02-04] MEDS ORDERED: NALOXONE 0.4 MG/ML 1 ML VIAL IV PRN (09:09)
[2021-02-04] MEDS ORDERED: HYDROcodone/APAP 5-325MG 1 EACH TAB PO PRN (09:09)
--- NOTE | 2021-02-04 09:28 | P.OP ---
Date of Procedure: 02/04/21 Preoperative Diagnosis: Left hip severe osteoarthrosis Postoperative Diagnosis: Same Procedure(s) Performed: Left total hip arthroplastylateral approach to press-fit Implants: Depuy Corail size 11 standard collared press-fit femoral stem, 36+1.5 cobalt chrome femoral head, 52 mm Tuttle acetabular shell with neutral polyethylene liner. Anesthesia: spinal Surgeon: Dominick Jauregui [employer] Consultant #1: Jorge Cuenca Estimated Blood Loss (ml): 100 Pathology: other (Femoral head) Condition: stable Disposition: PACU Indications for Procedure: The patient's a 80-year-old female presents with progressive left hip pain secondary to osteoarthrosis despite conservative treatment. A discussion of the risks and benefits of operative intervention versus continued conservative measures was made with patient regarding proceed with surgery. Operative risks to include infection, neurovascular injury, fracture, development of blood clots, possible leg length discrepancy, possible instability and need for subsequent procedures was discussed. Informed consent was obtained. Operative Findings: As below Description of Procedure: The patient was brought to the operating room, and after induction of spinal anesthesia was placed in a lateral decubitus position. The bony prominences were appropriately padded. The pelvis was stable perpendicular to the floor with a pegboard. The left lower extremity was prepped and draped in normal fashion. A 12 cm incision was then made centered over the greater trochanter extending superiorly to level the ASIS and distally in line with the femoral shaft. The skin and subcutaneous tissues were divided sharply. Electrocautery was used for hemostasis. The fascia silvia and gluteus brian fascia was split in line with the skin incision. The muscle fibers were bluntly dissected proximally. A self-retaining retractor was placed. The anterior and posterior margins of the gluteus medius muscles identified and the anterior two thirds was detached from the greater trochanter with electrocautery. The gluteus minimus tendon was identified and detached in a similar fashion. A wide capsulotomy was performed. The femoral neck fracture was identified in the lower neck cut was made approximately 1 1/2 cm above the level of the lesser trochanter with a sagittal saw at a 45 the shaft. The head was then extracted with a corkscrew. Attention was then paid towards preparing the acetabular. Anterior and posterior retractors were placed. The remaining capsular labral tissues debrided sharply clearly defining the acetabular margins. Began reaming with a 45 mm reamer taking care to initially medialize, then reaming at 45 of abduction and 20 of anteversion. Sequential reaming is performed up to 51 mm. This was down to bleeding bony surface. A trial 52 mm acetabular shell was inserted at 45 of abduction and 20 of anteversion. This was fully seated. There was good rim fit and stability. A neutral polyethylene liner was then impacted. Care taken to avoid any soft tissue interposition. Attention was then paid towards preparing the proximal femur. A box chisel was used to open the metaphyseal region. A canal finder was used to find the femoral canal. Sequential broaching was performed up to a size 11. This is placed in 15 of anteversion with the leg perpendicular floor judging off the trans-epicondylar a xis. There is good rotational stability. A calcar mill was used to fashion the medial calcar. A trial standard neck along with a 36 mm + 1.5 trial head was placed. The hip was gently reduced. It was taken through range of motion. I felt to be stable in flexion and extension with internal and external rotation. I felt there was adequate evangelical of soft tissue tension. The hip was gently dislocated. The trial components removed. Pulsatile lavage was utilized. The final size 11 standard collared femoral stem was inserted again with the leg perpendicular to the floor in 15 of anteversion. Again there was good rotational stability. A 36 mm + 1.5 cobalt chrome femoral head was gently impacted. The hip was gently reduced. Again it was taken through motion and felt to be stable in flexion and extension with internal and external rotation. Pulsatile lavage was again utilized. With the leg in abduction the gluteus minimus and medius tendons reattached to the greater trochanter with #2 Ethibond suture. There was minimal drainage therefore a deep drain was not placed. The fascia silvia and gluteus brian fascia was closed with #2 Ethibond suture. The subcutaneous tissues were reapproximated interrupted 2-0 Vicryl sutures. The skin was reapproximated with 3-0 subcuticular strata fix suture. Skin tape and adhesive was applied. A sterile dressing was applied. The patient was awoken from sedation and transferred to recovery room in good condition. Blood loss was estimated 100 mL. No complications were incurred. Sponge and needle counts were correct in the case. Jorge Cuenca PA assisted during the major composes case to include exposure, implantation, and closure.
[2021-02-04] MEDS: HYDROmorphone 0.5 MG/0.5 ML SYRINGE IVP PRN ×4 (09:33→22:26)
--- NOTE | 2021-02-04 09:43 | XR ---
EXAMINATION TYPE: XR Hip Limited LT DATE OF EXAM: 02/04/2021 COMPARISON: NONE HISTORY: Postop TECHNIQUE: One view submitted. FINDINGS: There is postsurgical change in near anatomic alignment. There is soft tissue edema and emphysema. IMPRESSION: 1. Postoperative change. Appears in near-anatomic alignment.
[2021-02-04] MEDS ORDERED: diphenhydrAMINE 50 MG/ML 1 ML VIAL ONE (12:23)
[2021-02-04] MEDS: HYDROcodone/APAP 7.5-325MG 1 EACH TAB PO PRN ×2 (13:33→22:52)
[2021-02-04] MEDS ORDERED: ACETAMINOPHEN TAB 325 MG TAB PO PRN (13:56)
--- NOTE | 2021-02-04 13:58 | P.CONS ---
History of Present Illness - Reason for Consult Consult date: 02/04/21 Medical management of hypertension hyperlipidemia - History of Present Illness Di is a 80-year-old white female well-known to me. She has left hip osteoarthritis is elected to undergo left total hip arthroplasty Dr. Jauregui. She has a known history of atrial fibrillation, hypertension and hyperlipidemia and is on long-term anticoagulation. She is status post left total hip arthroplasty several hours ago. She has no c urrent complaints other than left knee numbness. Denies any chest pains, pressures, shortness breath, nausea, or vomiting. She is planning on returning home, but we discussed rehabilitation at [facility] if needed. Review of Systems All systems: negative Past Medical History Past Medical History: Atrial Fibrillation, Deep Vein Thrombosis (DVT), GERD/Reflux, GI Bleed, Hyperlipidemia, Hypertension, Osteoarthritis (OA), Thyroid Disorder Additional Past Medical History / Comment(s): hx hemorrhoids, DVT leg years ago after one of her children, dx. w/a-fib few months ago so surgery was postponed till now History of Any Multi-Drug Resistant Organisms: None Reported Past Surgical History: Cholecystectomy, Heart Catheterization, Hysterectomy Additional Past Surgical History / Comment(s): surgery for varicose veins left leg Past Anesthesia/Blood Transfusion Reactions: No Reported Reaction Additional Past Anesthesia/Blood Transfusion Reaction / Comm: STATES IT TOOK A LONGER TO WAKE UP" PER PATIENT Past Psychological History: No Psychological Hx Reported Smoking Status: Never smoker Past Alcohol Use History: None Reported Past Drug Use History: None Reported - Past Family History Father Family Medical History: Cancer Sister(s) Family Medical History: Cancer Sister(s) Daughter(s) Additional Family Medical History / Comment(s): sister-cancer Medications and Allergies Home Medications Medication Instructions Recorded Confirmed Type Acetaminophen [Tylenol] 325 mg PO Q4H PRN 08/19/18 01/30/21 History Atorvastatin [Lipitor] 40 mg PO HS 08/19/18 01/30/21 History Benazepril HCl 20 mg PO DAILY 08/19/18 02/04/21 History Calcium Carbonate/Vitamin D3 1 each PO DAILY 08/19/18 01/30/21 History [Caltrate 600 Plus D3 Tablet] amLODIPine BESYLATE [Norvasc] 10 mg PO 1600 08/19/18 01/30/21 History hydroCHLOROthiazide [Hydrodiuril] 25 mg PO DAILY 08/19/18 01/30/21 History methIMAzole [Tapazole] 2.5 mg PO 1600 08/19/18 01/30/21 History Cholecalciferol [Vitamin D3 (25 50 mcg PO DAILY 08/07/20 01/30/21 History Mcg = 1000 Iu)] Metoprolol Succinate (ER) [Toprol 25 mg PO HS 08/07/20 02/04/21 History Xl] Rivaroxaban [Xarelto] 20 mg PO DAILY 01/30/21 02/04/21 History Allergies Allergy/AdvReac Type Severity Reaction Status Date / Time adhesive tape Allergy Rash/Hives Verified 02/04/21 07:06 niacin Allergy Unknown Verified 02/04/21 07:06 [From Niaspan Extended-Release] Physical Exam Vitals: Vital Signs Temp Pulse Resp BP Pulse Ox 02/04/21 12:15 85 16 135/61 99 02/04/21 11:45 66 14 133/73 99 02/04/21 11:15 52 L 14 133/64 99 02/04/21 10:45 88 14 122/63 98 02/04/21 10:15 63 14 112/59 98 02/04/21 10:00 80 16 113/58 98 02/04/21 09:45 88 16 111/59 95 02/04/21 09:30 75 14 102/52 92 L 02/04/21 09:22 97.6 F 105 H 18 106/41 98 02/04/21 07:15 97.4 F L 89 17 146/68 97 Intake and Output 02/03/21 02/04/21 02/04/21 22:59 06:59 14:59 Intake Total 1900 Balance 1900 Intake: IV 1900 Other: Weight 83.7 kg GENERAL: Well-appearing, well-nourished and in no acute distress. HEAD: Atraumatic, normocephalic. EYES: Pupils equal round and reactive to light, extraocular movements intact, sclera anicteric, conjunctiva are normal. ENT:nares patent, oropharynx clear without exudates. Moist mucous membranes. NECK: Normal range of motion, supple without lymphadenopathy or JVD, no thyromegaly LUNGS: Breath sounds slightly coarse to auscultation bilaterally and equal. No wheezes rales or rhonchi. HEART: Regular rate and rhythm without murmurs, rubs or gallops.S1S2 Normal ABDOMEN: Soft, nontender, normoactive bowel sounds. No guarding, no rebound. No masses appreciated. EXTREMITIES: No clubbing or cyanosis. Jobst hose are in place, left leg shows staining from a iodine cleaning solution. No significant edema noted. NEUROLOGICAL: Cranial nerves II through XII grossly intact. Normal speech, normal gait. PSYCH: Normal mood, normal affect. SKIN: Warm, Dry, normal turgor, no rashes or lesions noted. Results Comments: Preoperative labs reviewed from January 24 hemoglobin 14. GFR is greater than 60. Vitamin D was 28.7. Assessment and Plan (1) Status post total hip replacement, left Current Visit: Yes Status: Acute Code(s): Z96.642 - PRESENCE OF LEFT ARTIFICIAL HIP JOINT SNOMED Code(s): 183596508143 (2) Atrial fibrillation Current Visit: Yes Status: Acute Code(s): I48.91 - UNSPECIFIED ATRIAL FIBRILLATION SNOMED Code(s): 04527043 (3) Essential (primary) hypertension Current Visit: Yes Status: Acute Code(s): I10 - ESSENTIAL (PRIMARY) HYPERTENSION SNOMED Code(s): 60610540 (4) Mixed hyperlipidemia Current Visit: Yes Status: Acute Code(s): E78.2 - MIXED HYPERLIPIDEMIA SNOMED Code(s): 273498103 (5) [employer] current use of anticoagulant therapy Current Visit: Yes Status: Acute Code(s): Z79.01 - HALFWAY (CURRENT) USE OF ANTICOAGULANTS SNOMED Code(s): 769803116 (6) Graves' disease in remission Current Visit: Yes Status: Acute Code(s): E05.00 - THYROTOXICOSIS W DIFFUSE GOITER W/O THYROTOXIC CRISIS SNOMED Code(s): 457247125310139 Plan: She will restart her home medications and anticoagulants if okay with orthopedic surgery. Repeat labs in a.m. Add vitamin D supplementation PT, OT to evaluate. Reevaluate her in the next 24 hours. The DNR per patient request Consider ECF placement if therapy goes poorly
[2021-02-04] MEDS: methIMAzole 5 MG TAB PO SCH (14:58)
[2021-02-04] MEDS ORDERED: amLODIPine 10 MG TAB PO SCH (16:00)
[2021-02-04] MEDS ORDERED: ATORVASTATIN 40 MG TAB PO SCH (21:00)
[2021-02-04] MEDS ORDERED: METOPROLOL SUCCINATE (ER) 25 MG TAB.ER.24H PO SCH (21:00)
[2021-02-04] MEDS ORDERED: SENNOSIDES-DOCUSATE SODIUM 1 EACH TAB PO SCH (21:00)
[2021-02-05] MEDS: HYDROcodone/APAP 7.5-325MG 1 EACH TAB PO PRN ×2 (06:26→09:25)
[2021-02-05 07:22] VITALS: RESP 18
[2021-02-05] MEDS ORDERED: ENOXAPARIN 40 MG/0.4 ML SYRINGE SQ SCH (09:00)
[2021-02-05] MEDS ORDERED: CALCIUM CARB-VIT D 500 MG-5 MCG TAB PO SCH (09:00)
[2021-02-05] MEDS ORDERED: CHOLECALCIFEROL 25 MCG (1000 IU) TABLET PO SCH (09:00)
[2021-02-05] MEDS ORDERED: lisinopriL 20 MG TAB PO SCH (09:00)
[2021-02-05] MEDS ORDERED: hydroCHLOROthiazide 25 MG TAB PO SCH (09:00)
[2021-02-05] MEDS: methIMAzole 5 MG TAB PO SCH (09:24)
--- NOTE | 2021-02-05 10:13 | P.DS ---
Providers Date of admission: 02/04/2021 Expected date of discharge: 02/05/21 Attending physician: Dominick Jauregui Consults: 02/04/21 09:13 Consult Physician Routine Consulting Provider: Nick Vergara Reason/Comments: Medical Management s/p left total hip arthroplasty Do you want consulting provider notified?: Yes Primary care physician: Nick Vergara Hospital Course: Date of admission: 02/04/2021 Date of discharge: 02/05/2021 Admission diagnosis: Left hip osteoarthritis Discharge diagnosis: Same Attending physician: Dr. Jauregui Surgical procedures: Left total hip arthroplasty Brief history: Patient is a 80-year-old female with a history of progressive primary left hip osteoarthritis. At this point patient has failed conservative treatment measures and has opted to proceed with a elective left total hip arthroplasty. Hospital course: Details of patient's surgery can be found in operative report. Patient tolerated the procedure well and was subsequently transported to orthopedic floor. Patient's orthopeidc and medical care was provided daily. Patient had daily laboratory tests performed for evaluation of overall blood counts. Patient had daily physical therapy to include strengthening range of motion as well as education with walker ambulation. Patient was treated with Lovenox for their postoperative DVT prophylaxis during their inpatient stay. Patient was noted to have a relatively uneventful postoperative course. Patient reported satisfactory pain control with oral pain medications by postoperative day 1. Patient showed satisfactory progress with physical therapy. Patient moved steadily through the program and had no difficulty meeting the goals by postoperative day 1. Given patient's otherwise satisfactory course and having met physical therapy goals, plan is to discharge patient home on postoperative day 1. Discharge condition/disposition: Patient will be discharged home in stable condition. Discharge medications: Instructions are given on resumption of patient's normal daily medications per primary care recommendation, in addition patient will be prescribed Gans 5 mg/325 mg; Colace. Patient will resume Xarelto once at home for DVT prophylaxis Discharge instructions: 1. Wound care and infection precautions, keep incision dry and covered while showering, no lotions, creams, moisturizers. No soaking, tubs, pools, hottubs. Do not scrub over the incision. 2. Weight-bear as tolerated with walker / cane until follow-up. 3. Ice and elevate when necessary. Do not exceed 20 minutes per hour with ice pack. 4. Utilize compression sleeve until seen at first follow up appointment. 5. Visiting nursing care. 6. Home physical therapy. 7. Pain meds and anticoagulants per prescription. 8. Pain medication has potential to cause constipation. Increase oral fluid and fiber intake. Contact primary care provider if you have not had a bowel movement within 48 hours after discharge 9. No anti-inflammatory medication until discussed at first post operative visit, this including Motrin, Aleve, Mobic, Diclofenac. 10. Follow up in office at 2 weeks postop with Ariel Zheng PA-C / Jorge Cuenca PA-C 11. Follow up with your primary care doctor 7-10 days after discharge. 12. Contact [facility] with any questions, . Assessment: Left hip osteoarthritis Procedures: Left total hip arthroplasty Patient Condition at Discharge: Good Plan - Discharge Summary Discharge Rx Participant: Yes New Discharge Prescriptions: New Docusate [Colace] 100 mg PO DAILY #30 capsule HYDROcodone/APAP 5-325MG [Gans 5-325] 1 tab PO Q6HR PRN #36 tab PRN Reason: Pain No Action methIMAzole [Tapazole] 2.5 mg PO 1600 Atorvastatin [Lipitor] 40 mg PO HS Acetaminophen [Tylenol] 325 mg PO Q4H PRN PRN Reason: Pain amLODIPine BESYLATE [Norvasc] 10 mg PO 1600 hydroCHLOROthiazide [Hydrodiuril] 25 mg PO DAILY Calcium Carbonate/Vitamin D3 [Caltrate 600 Plus D3 Tablet] 1 each PO DAILY Benazepril HCl 20 mg PO DAILY Metoprolol Succinate (ER) [Toprol Xl] 25 mg PO HS Cholecalciferol [Vitamin D3 (25 Mcg = 1000 Iu)] 50 mcg PO DAILY Rivaroxaban [Xarelto] 20 mg PO DAILY Discharge Medication List Acetaminophen [Tylenol] 325 mg PO Q4H PRN 08/19/18 [History] Atorvastatin [Lipitor] 40 mg PO HS 08/19/18 [History] Benazepril HCl 20 mg PO DAILY 08/19/18 [History] Calcium Carbonate/Vitamin D3 [Caltrate 600 Plus D3 Tablet] 1 each PO DAILY 08/19/18 [History] amLODIPine BESYLATE [Norvasc] 10 mg PO 1600 08/19/18 [History] hydroCHLOROthiazide [Hydrodiuril] 25 mg PO DAILY 08/19/18 [History] methIMAzole [Tapazole] 2.5 mg PO 1600 08/19/18 [History] Cholecalciferol [Vitamin D3 (25 Mcg = 1000 Iu)] 50 mcg PO DAILY 08/07/20 [History] Metoprolol Succinate (ER) [Toprol Xl] 25 mg PO HS 08/07/20 [History] Rivaroxaban [Xarelto] 20 mg PO DAILY 01/30/21 [History] Docusate [Colace] 100 mg PO DAILY #30 capsule 02/05/21 [Rx] HYDROcodone/APAP 5-325MG [Gans 5-325] 1 tab PO Q6HR PRN #36 tab 02/05/21 [Rx] Follow up Appointment(s)/Referral(s): Jorge Cuenca, OSWALDO [PHYSICIAN COUNTER SERVER] - 2 Weeks Activity/Diet/Wound Care/Special Instructions: Orthopedic Discharge Instructions: 1. Wound care and infection precautions, keep incision dry and covered while showering, no lotions, creams, moisturizers. No soaking, pools, hot tubs. Do not scrub over incision. 2. Weight-bear as tolerated with walker / cane until follow-up. 3. Ice and elevate when necessary. Do not exceed 20 minutes per hour with ice pack. 4. Utilize compression sleeve until seen at first follow up appointment. 5. Pain meds and anticoagulants per prescription. 6. Pain medication has potential to cause constipation. Increase oral fluid and fiber intake. Contact primary care provider if you have not had a bowel movement within 48 hours after discharge. 7. No anti-inflammatory medication until discussed at first post operative visit, this including Motrin, Aleve, Mobic, Diclofenac. 8. Follow up in office at 2 weeks postop with Ariel Zheng PA-C / Jorge Cuenca PA-C 9. Follow up with your primary care doctor 7-10 days after discharge. 10. Contact [facility] with any questions, . Discharge Disposition: HOME WITH HOME HEALTH SERVICES
--- NOTE | 2021-02-05 10:23 | P.PN ---
Subjective Progress Note Date: 02/05/21 Principal diagnosis: Left hip osteoarthritis Patient was seen at bedside this morning. Patient was walking around physical therapy in the room and sat down in chair. Patient says physical therapy went well this morning and she walked down the andersen and up-and-down a couple steps. Patient says she rates her pain as 5 out of 10. She says she last took pain medication early this morning. Patient says she has not had a bowel movement yet, however, she says she has passed gas. Patient denies chest pain, fever, shortness of breath, nausea, vomiting, change in vision, loss of bowel/bladder control. Objective - Vital Signs Vital signs: Vital Signs Temp 97.9 F 02/05/21 07:20 Pulse 102 H 02/05/21 07:20 Resp 18 02/05/21 07:20 BP 123/70 02/05/21 07:20 Pulse Ox 90 L 02/05/21 07:20 Intake & Output 02/04/21 02/05/21 02/05/21 18:59 06:59 18:59 Intake Total 1901 Balance 190 Weight 83.7 kg Intake: IV 1900 Other: # Voids 1 - Exam Left hip: Incision is clean, dry, and intact. The exofin fusion tape is in good condition. There is minimal soft tissue swelling and ecchymosis surrounding the medial and lateral aspects of the incision. Calf is soft, no tenderness with palpation. Plantar flexion, dorsiflexion, EHL, FHL are intact. Sensory exam to light touch throughout the extremity is intact, dorsal pedis pulses 2+. Assessment and Plan Assessment: Left hip osteoarthritis Plan: 1. Left hip osteoarthritis - left total hip arthroplasty from yesterday, a 2020. Patient stable this morning; plan discharge home today. 2. Appreciate medical management 3. Pain management - stable at this time. Going home with [place] 5 mg/325 mg 4. GI prophylaxis - senna. Going home with Colace. 5. DVT prophylaxis - Lovenox in hospital. Resume Xarelto once at home. 6. PT/OT - weightbearing as tolerated with walker for assistance 7. Encourage says spirometer 8. Discharge planning - plan for discharge home today. Time with Patient: Less than 30
--- NOTE | 2021-02-05 11:00 | P.PN ---
Subjective Progress Note Date: 02/05/21 Lorraine is a 80-year-old white female well-known to me. She has left hip osteoarthritis is elected to undergo left total hip arthroplasty Dr. Jauregui. She has a known history of atrial fibrillation, hypertension and hyperlipidemia and is on long-term anticoagulation. She is status post left total hip arthroplasty several hours ago. She has no current complaints other than left knee numbness. Denies any chest pains, pressures, shortness breath, nausea, or vomiting. She is planning on returning home, but we discussed rehabilitation [facility] if needed. 02/05/2021: Patient is doing well. She is status post left total hip arthroplasty for left hip osteoarthritis, postoperative day 1. This is done by Dr. Manzo. She currently being anticoagulated with Lovenox. She has a history of atrial fibrillation ordinarily takes Xarelto. Today she denies any chest pains compression of shortness breath, nausea or vomiting. Has not had a bowel movement. She is up ambulating with a walker without complaint. Still has a little numbness to her left knee anterior. She is planning to be discharged home today with [facility] home [facility]. Labs are still pending. Objective - Vital Signs Vital signs: Vital Signs Temp 97.9 F 02/05/21 07:20 Pulse 102 H 02/05/21 07:20 Resp 18 02/05/21 07:20 BP 123/70 02/05/21 07:20 Pulse Ox 90 L 02/05/21 07:20 Intake & Output 02/04/21 02/05/21 02/05/21 18:59 06:59 18:59 Intake Total 1901 Balance 1901 Weight 83.7 kg Intake: IV 1901 Other: # Voids 1 - Exam GENERAL: Well-appearing, well-nourished and in no acute distress. She is sitting up in the chair eating breakfast. NECK: Normal range of motion, supple without lymphadenopathy or JVD, no thyromegaly LUNGS: Breath sounds slightly coarse to auscultation bilaterally and equal. No wheezes rales or rhonchi. HEART: iregular rate and irregular rhythm without murmurs, rubs or gallops.S1S2 Normal ABDOMEN: Soft, nontender, normoactive bowel sounds. No guarding, no rebound. No masses appreciated. EXTREMITIES: No clubbing or cyanosis. Jobst hose are in place, No significant edema noted. NEUROLOGICAL: Cranial nerves II through XII grossly intact. Normal speech, normal gait. PSYCH: Normal mood, normal affect. SKIN: Warm, Dry, normal turgor, no rashes or lesions noted. Assessment and Plan (1) Status post total hip replacement, left Current Visit: Yes Status: Acute Code(s): Z96.642 - PRESENCE OF LEFT ARTIFICIAL HIP JOINT SNOMED Code(s): 281507017850 (2) Atrial fibrillation Current Visit: Yes Status: Acute Code(s): I48.91 - UNSPECIFIED ATRIAL FIBRILLATION SNOMED Code(s): 45954927 (3) Essential (primary) hypertension Current Visit: Yes Status: Acute Code(s): I10 - ESSENTIAL (PRIMARY) HYPERTENSION SNOMED Code(s): 55344063 (4) Mixed hyperlipidemia Current Visit: Yes Status: Acute Code(s): E78.2 - MIXED HYPERLIPIDEMIA SNOMED Code(s): 007602622 (5) senior living current use of anticoagulant therapy Current Visit: Yes Status: Acute Code(s): Z79.01 - CUSTODIAL (CURRENT) USE OF ANTICOAGULANTS SNOMED Code(s): 393159675 (6) Graves' disease in remission Current Visit: Yes Status: Acute Code(s): E05.00 - THYROTOXICOSIS W DIFFUSE GOITER W/O THYROTOXIC CRISIS SNOMED Code(s): 290331297863960 Plan: She will be medically cleared for discharge once her laboratory studies are resolved. Any abnormalities be addressed before she is discharged. She can resume her Xarelto and other home medications We'll complete a discharge medication reconciliation for her. She was evaluated in the office in the next 2 weeks. Thank you for having us help in the care of this patient.
[2021-02-05 11:41] LABS: Basophils # (A) 0.01 X 10*3/uL (0.00-0.10); Basophils % (A) 0.1 %; Eosinophils # (A) 0 X 10*3/uL (0.04-0.35); Eosinophils % (A) 0 %; HGB 11.6 g/dL (12.0-15.0); Lymphocytes # (A) 1.26 X 10*3/uL (0.90-5.00); Lymphocytes % (A) 13.5 %; MCHC 33.1 g/dL (32.0-37.0); MCV 90.4 fL (80.0-97.0); Mean Platelet Volume 12.1 fL (9.5-12.2); Monocytes # (A) 0.79 X 10*3/uL (0.20-1.00); Monocytes % (A) 8.5 %; Neutrophils # (A) 7.21 X 10*3/uL (1.80-7.70); Neutrophils % (A) 77.5 %; Platelet Count 208 X 10*3/uL (140-440); RBC 3.87 X 10*6/uL (4.10-5.20); WBC 9.31 X 10*3/uL (4.50-10.00)
[2021-02-05 11:49] LABS: African American GFR (CKD) 96.2 (60.0-200.0); Anion Gap 8.2 mmol/L (4.00-12.00); BUN/Creat Ratio 22.86 Ratio (12.00-20.00); Calcium 9.3 mg/dL (8.7-10.3); Carbon Dioxide 29.8 mmol/L (21.6-31.8); Potassium 3.4 mmol/L (3.5-5.5)
[2021-02-05 13:15] VITALS: BP 109/63; PULSE 91; TEMP 98.1
[2021-02-05] MEDS ORDERED: POTASSIUM CHLORIDE ER 20 MEQ TAB.ER PO STA (13:29)
== END 2021-02-05 14:07 | disposition home health service (06) ==
LOC: OR 06:37 → 4SSUR 12:25 → OR 02-05 14:07
PROVIDERS: ATTEND Orthopaedic Surgery
DX: M16.12 Unilateral primary osteoarthritis, left hip (principal); I10 Essential (primary) hypertension; Z79.82 Long term (current) use of aspirin; Z79.899 Other long term (current) drug therapy; Z79.01 Long term (current) use of anticoagulants; E78.5 Hyperlipidemia, unspecified; R07.9 Chest pain, unspecified; I51.9 Heart disease, unspecified; I48.91 Unspecified atrial fibrillation; E07.9 Disorder of thyroid, unspecified; Z86.718 Personal history of other venous thrombosis and embolism; K21.9 Gastro-esophageal reflux disease without esophagitis
CPT/HCPCS: 97110; 97161; 97535; 97166; 86900; 86901; 80048; 85025; 86850; 88300; 73501; 27130; C1776 ×2; J1100; J0690 ×2; J2405; J1650; J3010; J2370; J2704; J1170

== ENCOUNTER → 2021-05-12 | Outpatient (CLI) | payer MEDICARE ==
[2021-05-12 12:04] LABS: T4, Free (Free Thyroxine) 1.3 ng/dL (0.78-2.19)
--- NOTE | 2021-05-12 15:23 | US ---
EXAMINATION TYPE: US thyroid st tissue head/neck DATE OF EXAM: 05/12/2021 COMPARISON: 12/06/2019 CLINICAL HISTORY: 80-year-old female E04.2 GOITER. TECHNIQUE: Multiple sonographic images of the thyroid gland are obtained. GLAND SIZE: Right Lobe: 4.32 x 1.99 x 2.84 cm Overall Parenchyma: heterogenous Left Lobe: 4.18 x 1.8 x 1.5 cm Overall Parenchyma: heterogeneous Isthmus Thickness: 1.0 cm NODULES RIGHT: # of nodules measured on right: 2 1. 2.9 X 1.9 x 2.2 cm, mid mid, solid or almost completely solid, hypoechoic nodule, which is talle r than wide, with lobulated or irregular margins, with echogenic foci. Biopsy recommended. (Pe Manager notes: Rt thyroid nodule appears as one large heterogenous nodule with echogenic foci wi thin, compared to prior exam measured separately) 2. 1.4 X 1.0 x 0.9 cm, lower medial, solid or almost completely solid, hypoechoic nodule, which is taller than wide, with lobulated or irregular margins, without echogenic foci. Prior size: 0.8 x 0.9 x 0.8 cm, continue to follow given interval increase in size. LEFT: # of nodules measured on left: 1 1. 0.7 X 0.5 x 0.6 cm, upper medial, solid or almost completely solid, hypoechoic nodule, which is taller than wide, with lobulated or irregular margins, without echogenic foci. Prior size: 1.2 x 0.7 x 1.1 cm ISTHMUS: # of nodules measured in the isthmus: 1 1. 2.1 X 0.9 x 0.6 cm, lower medial, solid or almost completely solid, hypoechoic nodule, which is wider than tall, with lobulated or irregular margins, without echogenic foci. Prior size: 1.7 x 0.9 x 1.1 cm , biopsy recommended. Bilateral neck scanned, no evidence of lymphadenopathy. IMPRESSION: 1. Multinodular goiter. 2. Dominant 2.9 cm mostly solid nodule on the right contains some internal calcifications. Previously appear to represent separate nodules. Biopsy recommended. 3. A 2.1 cm solid nodule in the left thyroid isthmus has increased from 1.7 cm and can also be sample d. 4. Continued follow-up of the 1.4 cm right lower lobe nodule which previously measured 9 mm.
== END | disposition home or self-care (01) ==
LOC: RADUSWWP 10:28
PROVIDERS: ATTEND Internal Medicine Endocrinology, Diabetes & Metabolism
DX: E04.2 Nontoxic multinodular goiter (principal)
CPT/HCPCS: 76536; 84439; 84443; 84480

== ENCOUNTER → 2021-10-30 | Outpatient (CLI) | payer MEDICARE ==
[2021-10-30 18:36] LABS: T4, Free (Free Thyroxine) 1.58 ng/dL (0.800-1.800)
== END | disposition home or self-care (01) ==
LOC: LABWHC1 12:32
PROVIDERS: ATTEND Internal Medicine Endocrinology, Diabetes & Metabolism
DX: E05.90 Thyrotoxicosis, unspecified without thyrotoxic crisis or storm (principal)
CPT/HCPCS: 36415; 84439; 84443; 84480

== ENCOUNTER → 2021-11-21 | Outpatient (CLI) | payer MEDICARE ==
--- NOTE | 2021-11-21 16:23 | BD ---
EXAMINATION TYPE: Axial Bone Density DATE OF EXAM: 11/21/2021 COMPARISON: NONE CLINICAL HISTORY: 81 year old Female. ICD-10 CODE: Z78.0 POST MENOPAUSAL WITHOUT HRT Height: 63 Weight: 188.1 FRAX RISK QUESTIONS: Alcohol (3 or more units per day): no Family History (Parent hip fracture): no Glucocorticoids (More than 3mos): no (Ex: prednisone, prednisolone, methylprednisolone, dexamethasone, and hydrocortisone). History of Fracture in Adulthood: no Secondary Osteoporosis: 1. Type 1 Diabetes: no 2. Hyperthyroidism: no 3. Menopause before 45: yes 4. Malnutrition: no 5. Chronic liver disease: no Rheumatoid Arthritis: no Current Tobacco Use: no RISK FACTORS HISTORY OF: Surgery to Spine/Hip(right/left)/Wrist (right/left): left hip replaced When: Family History of Osteoporosis: no Active: no Diet low in dairy products/other sources of calcium: yes Postmenopausal woman: yes Lost more than 2 inches in height since high school: no MEDICATIONS: Thyroid Medications: synthroid How Lon years Additional History: EXAM MEASUREMENTS: Bone mineral densitometry was performed using the [employer] System. Bone mineral density as measured about the Lumbar spine is: ----- L1-L4(G/cm2): 1.045 T Score Values are as follows: ----- L1: -2.6 ----- L2: -1.2 ----- L3: -0.6 ----- L4: -0.5 ----- L1-L4: -1.1 Bone mineral density has: decreased -14.2 % since study of: 02.23.2019 Bone mineral density about the R hip (g/cm2): 0.851 T Score values are as follows: -----R Neck: -1.3 -----R Total: -0.8 Bone mineral density has: decreased -3.1 % since study of: 02.23.2019 FRAX%s: The graph provided illustrates a 11.9% chance for a major osteoporotic fx and a 2.5% chance f or the hips probability for fx in 10 years time. IMPRESSION: Osteopenia (T Score between -2.5 and -1). There is slightly increased risk of fracture and the patient may be considered for treatment. Re-Screen 2-5 years. NOTE: T-SCORE=SD OF THE YOUNG ADULT MEAN.
== END | disposition home or self-care (01) ==
LOC: RADBDWWP 08:35
PROVIDERS: ATTEND Family Medicine
DX: Z00.00 Encounter for general adult medical examination without abnormal findings (principal); Z12.31 Encounter for screening mammogram for malignant neoplasm of breast; Z78.0 Asymptomatic menopausal state
CPT/HCPCS: 77063; 77067; 77080

== ENCOUNTER → 2022-05-07 | Outpatient (CLI) | payer MEDICARE ==
[2022-05-07 15:22] LABS: T4, Free (Free Thyroxine) 1.48 ng/dL (0.800-1.800)
== END | disposition home or self-care (01) ==
LOC: LABWHC1 09:03
PROVIDERS: ATTEND Internal Medicine Endocrinology, Diabetes & Metabolism
DX: E05.90 Thyrotoxicosis, unspecified without thyrotoxic crisis or storm (principal)
CPT/HCPCS: 36415; 84439; 84443; 84480

== ENCOUNTER → 2022-11-13 | Outpatient (CLI) | payer MEDICARE ==
--- NOTE | 2022-11-13 13:17 | US ---
EXAMINATION TYPE: US thyroid st tissue head/neck DATE OF EXAM: 11/13/2022 COMPARISON: Prior ultrasound May 02, 2021 CLINICAL INDICATION: Female, 82 years old with history of E04.2 MULTINODULAR GOITER; f/u exam, nothin g new GLAND SIZE: Right Lobe: 4.4 x 1.9 x 2.8 cm Overall Parenchyma: heterogenous Left Lobe: 3.7 x 1.6 x 2.0 cm Overall Parenchyma: heterogenous Isthmus Thickness: 0.5 cm NODULES RIGHT: # of nodules measured on right: multiple, measured largest solid 1. 1.6 X 1.2 x 1.1 cm, mid , solid or almost completely solid, isoechoic nodule, which is wider rashawn n tall, with smooth margins, without echogenic foci. Prior size: 1.1 x 1.1 x 0.9 cm LEFT: # of nodules measured on right: multiple, measured largest solid 1. 1.0 X 0.9 x 0.6 cm, lower, mixed cystic and solid, hypoechoic nodule, which is wider than tall, with smooth margins, without echogenic foci. Prior size: 1.2 x 0.7 x 0.6 cm ISTHMUS: # of nodules measured in the isthmus: 1 1. 1.1 X 0.5 x 0.5 cm mixed cystic and solid, hypoechoic nodule, which is wider than tall, with ill -defined margins, without echogenic foci. Prior size: 2.1 x 0.6 x 0.9 cm Bilateral neck scanned, no evidence of lymphadenopathy. Heterogeneous small sized thyroid with scattered bilateral nodules, some marked by the technologist. IMPRESSION: As above. No significant change from recent prior studies.
[2022-11-13 20:45] LABS: T4, Free (Free Thyroxine) 1.71 ng/dL (0.800-1.800)
== END | disposition home or self-care (01) ==
LOC: RADUSWWP 12:08
PROVIDERS: ATTEND Internal Medicine Endocrinology, Diabetes & Metabolism
DX: E04.2 Nontoxic multinodular goiter (principal); E05.90 Thyrotoxicosis, unspecified without thyrotoxic crisis or storm
CPT/HCPCS: 76536; 84439; 84443; 84480

== ENCOUNTER → 2023-03-10 | Outpatient (CLI) | payer MEDICARE ==
[2023-03-10 16:46] LABS: T4, Free (Free Thyroxine) 1.34 ng/dL (0.80-1.80)
== END | disposition home or self-care (01) ==
LOC: LABWHC1 11:53
PROVIDERS: ATTEND Internal Medicine Endocrinology, Diabetes & Metabolism
DX: E05.90 Thyrotoxicosis, unspecified without thyrotoxic crisis or storm (principal)
CPT/HCPCS: 36415; 84439; 84443; 84480

== ENCOUNTER → 2023-10-04 | Outpatient (CLI) | payer MEDICARE ==
[2023-10-04 11:44] LABS: T4, Free (Free Thyroxine) 1.48 ng/dL (0.80-1.80)
== END | disposition home or self-care (01) ==
LOC: LABWHC1 07:45
PROVIDERS: ATTEND Internal Medicine Endocrinology, Diabetes & Metabolism
DX: E05.90 Thyrotoxicosis, unspecified without thyrotoxic crisis or storm (principal)
CPT/HCPCS: 36415; 84439; 84443; 84480

== ENCOUNTER → 2024-03-06 | Outpatient (CLI) | payer MEDICARE ==
[2024-03-06 11:45] LABS: HCT 37.1 % (34.0-46.0); HGB 12.6 gm/dL (11.4-16.0); MCH 30.3 pg (25.0-35.0); MCHC 33.9 g/dL (31.0-37.0); MCV 89.4 fL (80.0-100.0); Mean Platelet Volume 8.2; Platelet Count 226 k/uL (150-450); RBC 4.15 m/uL (3.80-5.40); RDW 13.4 % (11.5-15.5); WBC 5.6 k/uL (3.8-10.6)
[2024-03-06 12:36] LABS: African American GFR (CKD) >90 (>60 ml/min/1.73 sqM); Anion Gap 6 mmol/L; Blood Urea Nitrogen 9 mg/dL (7-17); Calcium 9.7 mg/dL (8.4-10.2); Carbon Dioxide 34 mmol/L (22-30); Chloride 101 mmol/L (98-107); Glucose 97 mg/dL (74-99); Non-African American GFR(CKD) 82 (>60 ml/min/1.73 sqM); Potassium 3.5 mmol/L (3.5-5.1); Sodium 141 mmol/L (137-145)
--- NOTE | 2024-03-06 14:53 | CT ---
EXAMINATION TYPE: CT abdomen pelvis w con DATE OF EXAM: 03/06/2024 COMPARISON: 07/04/2020 HISTORY: 83-year-old female R1 0.32, LLQ pain TECHNIQUE: Contiguous axial scanning of the abdomen and pelvis following administration of 100 ml Iso linda 300 IV contrast. Delayed images through the kidneys and coronal/sagittal reconstructions perform ed. CT DLP: 1147 mGycm Automated exposure control for dose reduction was used. FINDINGS: Heart were limited to mildly enlarged without pericardial effusion. Chronic appearing inter stitial changes in the lower lungs without pleural effusion. There is a small hiatal hernia present. Stable peripherally calcified cystic lesion mid hepatic dome measuring up to 3.0 cm. Bile duct is dilated up to 1.3 cm versus 1.0 cm previously. Small hepatic cysts measuring up to 9 mm are redemonstrated. Portal venous system is patent. Unchanged 1.5 cm nodule left adrenal gland. Spleen and atrophic pancreas show no gross abnormality. Inferior hilar splenule redemonstrated. Fat density cortical lesion measuring 1.3 cm lateral upper pole left kidney is unchanged compatible w ith a small AML. Tiny upper pole cortical cyst medial left kidney measuring 6 mm is unchanged. [employer] al pelvis redemonstrated on both sides. No dilated small bowel, free fluid, or free air. No mesenteric or retroperitoneal lymphadenopathy. There is mild to moderate scattered stool. Sigmoid diverticulosis. No pericolonic inflammatory change seen. Bladder urine distended. Uterus surgically absent. Pelvic floor relaxation. Pelvic phleboliths. Promi nent streak and beam hardening artifact related to the patient's left hip total arthroplasty limiting assessment of the pelvis. Ovaries not clearly identified. No abnormal fluid collection in the pelvis or pelvic lymphadenopathy. Bones: Degenerative change of the pubic symphysis. Left hip total arthroplasty. Baastrup's disease. Advanced hypertrophic facet arthropathy lumbar spine. Degenerative grade 1 nory listhesis L3-L4 and L4-L5. IMPRESSION: 1. SIGMOID DIVERTICULOSIS WITHOUT ACUTE DIVERTICULITIS. 2. Patient status post cholecystectomy. There is increasing dilatation of the bile duct now 1.3 cm ve rsus 1.0 cm, previously. Possibly progressive chronic changes. Correlate with alkaline phosphatase an d bilirubin levels. 3. Pelvic floor relaxation. Small hiatal hernia. 4. 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 [facility], , 03/06/2024 2:50 PM
== END | disposition home or self-care (01) ==
LOC: RADCTMAIN 11:12
PROVIDERS: ATTEND Family Medicine
DX: D35.02 Benign neoplasm of left adrenal gland (principal); D17.71 Benign lipomatous neoplasm of kidney; K57.30 Diverticulosis of large intestine without perforation or abscess without bleeding; K44.9 Diaphragmatic hernia without obstruction or gangrene; Z90.49 Acquired absence of other specified parts of digestive tract
CPT/HCPCS: 80048; 85027; 74177; 36415; Q9967